=== PATIENT | female | born 1955 | race Caucasian/White ===

== ENCOUNTER 2016-08-17 01:19 | Emergency (ER) | payer OTHER ==
[2016-08-17] MEDS ORDERED: IOPAMIDOL 370 (76%) 100 ML VIAL IV ONE (01:20)
[2016-08-17] MEDS ORDERED: MORPHINE SULFATE 2 MG/ML SYRINGE ONE ×2 (01:50→02:43)
[2016-08-17] MEDS ORDERED: LACTATED RINGERS 1,000 ML ONE (01:50)
[2016-08-17] MEDS ORDERED: MORPHINE SULFATE 4 MG/ML SYRINGE ONE ×2 (01:50→02:43)
[2016-08-17] MEDS ORDERED: PROCHLORPERAZINE 5 MG/ML 2 ML VIAL ONE (01:50)
[2016-08-17 02:15] LABS: ABSOLUTE NEUTROPHIL COUNT 9.4 K/mm3 (1.8-7.7); BASO % 0.4 % (0.2-1.0); HEMOGLOBIN 12.3 gm/l (12.0-16.0); IMM NEUT% 0.4 % (0-1); LYMPH # 1.3 (1.0-4.8); LYMPH % 11.4 % (15-45); MEAN CELL VOLUME 93.5 fl (81.0-99.0); MEAN CORPUSCULAR HEMOGLOBIN 31.9 pg (27.0-31.0); MEAN CORPUSCULAR HGB CONC 34.2 g/dl (33.0-37.0); MEAN PLATELET VOLUME 10.2 fl (7.4-10.4); MONO # 0.3 (0.0-0.8); MONO % 2.5 % (4-12); NEUT % 85.3 % (43-75); PLATELET COUNT 269 K/mm3 (130-400); RED CELL DISTRIBUTION WIDTH 12.2 % (11.5-14.5)
[2016-08-17 02:32] LABS: ALB/GLOB RATIO 1.5 (>1.0); CALCIUM 9.1 mg/dL (8.6-10.3)
[2016-08-17 02:47] LABS: SPECIFIC GRAVITY 1.015 (1.001-1.030); URINE BILIRUBIN NEGATIVE (NEGATIVE); URINE BLOOD TRACE (NEGATIVE); URINE GLUCOSE (UA) NEGATIVE (NEGATIVE); URINE LEUKOCYTE ESTERASE 2+ (NEGATIVE); URINE NITRITE NEGATIVE (NEGATIVE); URINE PROTEIN NEGATIVE (NEGATIVE); URINE UROBILINOGEN NORMAL (0-1 mg/dl)
[2016-08-17 02:48] LABS: URINE COLOR DARK YELLOW
[2016-08-17 02:49] LABS: URINE APPEARANCE HAZY
[2016-08-17 03:02] LABS: URINE BACTERIA RARE; URINE WBC 15-20 /hpf
[2016-08-17 04:00] LABS: CREATININE,RANDOM URINE 53 mg/dL
--- NOTE | 2016-08-17 07:52 | CT ---
Name: MRYTLE RASCON Exam: CT abdomen pelvis with contrast Comparison: None History: Diffuse abdominal pain Procedure: Helical CT using multidetector technique was applied to the abdomen and pelvis during intravenous administration of 100 cc Isovue-370. No oral contrast was given per ordering physician. An automated dose reduction technique was used to minimize patient radiation dose. Findings: CT abdomen (contrast enhanced): Lung bases are clear. Heart is nonenlarged. No pericardial effusion. Fatty changes of liver are suspected. The posterior segment of the right hepatic lobe, there is a 1 cm poorly marginated hypodensity which is too small to characterize on CT. Follow-up ultrasound is recommended. Gallbladder, spleen, adrenal glands, kidneys, aorta, IVC and portal vein are within normal limits. Pancreas somewhat truncated. There is a moderate size hiatal hernia distal stomach wall is thickened colon is redundant and there is diffuse increased stool within the colon. There is no free air, free fluid or suspicious adenopathy. There is very mild osteophytosis of the visualized spine with prominent degenerative facet disease at L5-S1. CT pelvis (contrast enhanced): Bladder is normal. Normal size uterus is to the right. There is mild stool within the rectosigmoid colon. Small bowel loops within the pelvis measure up to 3 cm in diameter and there is fecalization of the small bowel contents. Ovaries are not clearly identified air there is no suspicious adnexal mass. There is trace free fluid. There is no free air, abscess or adenopathy. Impression: 1. Obstipation. Patient's colon is redundant and there is increased stool 2. There are multiple loops of ileum which are mildly prominent and there is fecalization of small bowel content within the pelvis. Again, severe obstipation could have this appearance. Transition zone is not identified on this exam. 3. Nonvisualization of the appendix or ovaries. There are no pericecal inflammatory changes and no adnexal mass. 4. Trace free fluid. There is no free air or abscess 5. 1 cm poorly marginated hypodensity within the posterior segment right hepatic lobe. If this is previously unknown, follow-up ultrasound is recommended. 6. Nonvisualization of the body and tail of the pancreas. This truncation may be congenital. 7. Moderate size hiatal hernia Note: Findings were transmitted to the emergency Department from [facility] at 2:45 AM
[2016-08-18 13:49] LABS: CORTISOL 52.5 ug/dL (3.1-22.4)
== END 2016-08-17 06:01 | disposition home or self-care (01) ==
LOC: ED 01:19 → EEVIPCON 01:19 → ED 06:01
DX: R10.9 Unspecified abdominal pain (principal); E87.1 Hypo-osmolality and hyponatremia; E03.9 Hypothyroidism, unspecified; Z79.899 Other long term (current) drug therapy
CPT/HCPCS: 83605 ×2; 83690; 85025; 82533; 82570; 87086; 80053; 83930; 83935; 84300; 84443; 84484; 81001; 74177; 96375; 96376; 99284 ×2; 96374; J0780; J2270 ×4; J7120; Q9967

== ENCOUNTER 2016-08-17 20:01 | Inpatient (IN) | payer OTHER ==
[2016-08-17] MEDS ORDERED: IOPAMIDOL 370 (76%) 100 ML VIAL IV ONE (20:02)
[2016-08-17] MEDS ORDERED: ONDANSETRON 4 MG/2ML 2 ML VIAL ONE (20:53)
[2016-08-17] MEDS ORDERED: SODIUM CHLORIDE 0.9% 1,000 ML ONE (20:53)
[2016-08-17 21:25] LABS: ABSOLUTE NEUTROPHIL COUNT 15.8 K/mm3 (1.8-7.7); BASO % 0.1 % (0.2-1.0); HEMATOCRIT 37.4 % (37.0-47.0); HEMOGLOBIN 12.8 gm/l (12.0-16.0); IMM NEUT # 0.1 K/mm3 (0-0.2); IMM NEUT% 0.5 % (0-1); LYMPH # 0.9 (1.0-4.8); LYMPH % 5.1 % (15-45); MEAN CELL VOLUME 92.8 fl (81.0-99.0); MEAN CORPUSCULAR HEMOGLOBIN 31.8 pg (27.0-31.0); MEAN CORPUSCULAR HGB CONC 34.2 g/dl (33.0-37.0); MEAN PLATELET VOLUME 10.8 fl (7.4-10.4); MONO # 0.3 (0.0-0.8); MONO % 1.7 % (4-12); NEUT % 92.6 % (43-75); PLATELET COUNT 259 K/mm3 (130-400); RED CELL DISTRIBUTION WIDTH 12.5 % (11.5-14.5)
[2016-08-17 21:27] LABS: PH,URINE 6.5 (5.0-8.0); URINE BILIRUBIN NEGATIVE (NEGATIVE); URINE BLOOD 2+ (NEGATIVE); URINE GLUCOSE (UA) NEGATIVE (NEGATIVE); URINE LEUKOCYTE ESTERASE NEGATIVE (NEGATIVE); URINE NITRITE NEGATIVE (NEGATIVE); URINE PROTEIN TRACE (NEGATIVE); URINE UROBILINOGEN NORMAL (0-1 mg/dl)
[2016-08-17 21:36] LABS: ALB/GLOB RATIO 1.5 (>1.0); ALBUMIN 4.1 gm/dL (3.5-5.7)
[2016-08-17 21:40] LABS: URINE APPEARANCE CLEAR; URINE COLOR YELLOW
[2016-08-17] MEDS ORDERED: SODIUM CHLORIDE 0.9% 2,000 ML ONE (22:02)
[2016-08-17] MEDS ORDERED: HYDROMORPHONE HCL 1 MG/ML SYRINGE ONE (22:04)
[2016-08-17 22:18] LABS: BAND 10 % (0-10); BASOPHIL 0 % (0-1); EOSINOPHIL 0 % (1-3); LYMPHOCYTE 5 % (15-45); MONOCYTE 0 % (4-12); NEUTROPHILS 85 % (43-75); PLATELET ESTIMATE NORMAL (NORMAL); TOTAL CELLS COUNTED 100
[2016-08-17] MEDS ORDERED: PIPERACILLIN-TAZO PREMIX BAG 50 ML IV ONE (22:29)
[2016-08-17 22:42] LABS: URINE EPITHELIAL CELLS 0-2 /hpf
[2016-08-17 22:43] LABS: URINE BACTERIA 0
--- NOTE | 2016-08-17 22:55 | CT ---
Name: MYRTLE RASCON Exam: CT chest, abdomen and pelvis with contrast Comparison: CT abdomen dated 08/17/2016 History: Left upper quadrant pain. Nausea and vomiting. Procedure: Helical CT using multidetector technique was applied to the chest, abdomen and pelvis during intravenous administration of 100 cc Isovue-370. No oral contrast was given per ordering physician. An automated dose reduction technique was used to minimize patient radiation dose. Findings: CT chest (contrast-enhanced): Heart is not enlarged. There is no pericardial effusion. Aorta is normal caliber and there is a normal 3 great vessel arrangement. Limited views of the thyroid gland are within normal limits. Injection was made via the right. There is no suspicious axillary, mediastinal or hilar adenopathy. Large airways are clear. Vague mild patchy infiltrate is noted within the left upper lobe. There is a 9 mm well-circumscribed triangular-shaped structure associated with the minor fissure on the right which is thought to represent a lymph node. There is no pleural effusion or pneumothorax. Moderate size hiatal hernia is again identified. There is mild multilevel degenerative osteophytosis of the thoracic spine CT abdomen (contrast enhanced): The liver is normal size. Within the posterior segment of the right hepatic lobe, there is a 1 cm poorly marginated hypodensity which is too small to characterize on CT. Follow-up ultrasound is recommended. There is been vicarious excretion of contrast into the gallbladder as it is nearly isodense to surrounding liver. There is no gallbladder distention. There is no suspicious biliary dilation. The head of the pancreas is normal. The body and tail of the pancreas are absent truncation may be congenital. The spleen is not enlarged. Adrenal glands are normal. Kidneys, aorta, IVC and portal vein are normal. The distal wall of the stomach is thickened and this may be due to gastritis or underdistention and this is similar to the prior. Small bowel is nondilated. There is air and stool throughout the redundant colon. Stool burden appears to have diminished in the interim. There is no free air, adenopathy or abscess. There is new mild free fluid. Mild degenerative disease of the spine is present. CT pelvis (contrast enhanced): The bladder is partially filled. Normal size uterus is to the right. Ovaries are not identified. The distal small bowel loops that had fecalization of its material are less prominent on the current exam. There is no small bowel dilation. There is air and stool within the sigmoid colon and there is no obstruction. There is mild free fluid within the pelvis which is increased in volume from today's earlier exam. The appendix is not identified as a separate anatomic structure. There is no free air or abscess. Impression: 1. Very mild patchy infiltrate left upper lobe 2. Mild ascites within the abdomen new from the prior exam. There is mild ascites in the pelvis which is increased in volume from the prior exam. There is no current free air or abscess. 3. Stool and air throughout the redundant colon. Stool volume has diminished since the prior exam 4. Nonvisualization of the appendix and ovaries 5. Thickening of the distal stomach similar to the prior exam. This could be due to underdistention however gastritis is not excluded 6. 1 cm poorly marginated hypodensity within the right hepatic lobe similar to the prior. This is too small to characterize on CT. Follow-up ultrasound is recommended. 7. Moderate size hiatal hernia Note: The above report was uploaded to [facility]'s electronic medical records system at 2248 hours.
[2016-08-17] MEDS ORDERED: METRONIDAZOLE 500 MG/NS 100 ML 100 ML IV ONE (23:18)
[2016-08-17] MEDS ORDERED: ONDANSETRON 4 MG/2ML 2 ML VIAL IV PRN (23:42)
[2016-08-17] MEDS ORDERED: MENTHOL/CETYLPYRD 1 EACH LOZENGE PO PRN (23:42)
[2016-08-17] MEDS ORDERED: HYDROMORPHONE HCL 1 MG/ML SYRINGE IV PRN (23:42)
[2016-08-17] MEDS ORDERED: BLISTEX LIPSTICK 1 EACH TP PRN (23:42)
[2016-08-17] MEDS ORDERED: ACETAMINOPHEN 325 MG SUP PR PRN (23:42)
[2016-08-17] MEDS ORDERED: FAMOTIDINE 10 MG/ML 2ML VIAL IV SCH (23:45)
[2016-08-17] MEDS ORDERED: D5 1/2NS with 20 mEq KCL 1,000 ML IV SCH (23:45)
[2016-08-18] MEDS ORDERED: FENTANYL 5 ML ONE (00:42)
[2016-08-18] MEDS ORDERED: SUCCINYLCHOLINE CHL 20 MG/ML DOSE ONE (00:42)
[2016-08-18] MEDS ORDERED: DEXAMETHASONE SOD PHOS 4 MG/1 ML VIAL ONE (00:42)
[2016-08-18] MEDS ORDERED: MIDAZOLAM HCL 1 MG/ML 2ML VIAL ONE (00:42)
[2016-08-18] MEDS ORDERED: PROPOFOL 20 ML IV ONE (00:42)
[2016-08-18] MEDS ORDERED: LIDOCAINE 2% (MULTI DOSE) 10 ML VIAL ONE (00:42)
[2016-08-18] MEDS ORDERED: LACTATED RINGERS 1,000 ML ONE (01:21)
[2016-08-18] MEDS ORDERED: EPHEDRINE SULFATE UD SYR 25 MG 25 MG/5 ML SYRINGE IV ONE (01:41)
[2016-08-18] MEDS ORDERED: NEOSTIGMINE METHYLSULFATE 1 MG/ML DOSE ONE (02:16)
[2016-08-18] MEDS ORDERED: GLYCOPYRROLATE 0.2 MG/ML 1ML VIAL ONE (02:16)
[2016-08-18] MEDS ORDERED: KETOROLAC TROMETHAMINE 30 MG/ML 1 ML VIAL IV PRN (02:27)
[2016-08-18] MEDS ORDERED: BISACODYL 10 MG SUP PR PRN (02:27)
[2016-08-18] MEDS ORDERED: ACETAMINOPHEN 325 MG TABLET PO PRN (02:27)
[2016-08-18] MEDS ORDERED: MENTHOL/CETYLPYRD 1 EACH LOZENGE PO PRN (02:27)
[2016-08-18] MEDS ORDERED: BLISTEX LIPSTICK 1 EACH TP PRN (02:27)
[2016-08-18] MEDS ORDERED: ONDANSETRON 4 MG/2ML 2 ML VIAL IV PRN (02:27)
[2016-08-18] MEDS ORDERED: HYDROMORPHONE HCL 1 MG/ML SYRINGE IV PRN ×2 (02:27→02:48)
[2016-08-18] MEDS ORDERED: OXYCODONE HCL 5 MG TABLET PO PRN (02:27)
[2016-08-18] MEDS ORDERED: NALOXONE HCL 0.4 MG/ML VIAL ONE (02:29)
[2016-08-18] MEDS ORDERED: NALOXONE HCL 0.4 MG/ML VIAL IV PRN (02:48)
[2016-08-18] MEDS ORDERED: PROMETHAZINE HCL 25 MG/ML VIAL IM PRN (02:48)
[2016-08-18] MEDS ORDERED: MEPERIDINE 25 MG/ML SYRINGE IV PRN (02:48)
[2016-08-18] MEDS ORDERED: ATROPINE SULFATE 0.4 MG/1 ML VIAL IV PRN (02:48)
[2016-08-18] MEDS ORDERED: FENTANYL 100 MCG/2 ML VIAL IV PRN (02:48)
[2016-08-18] MEDS ORDERED: LACTATED RINGERS 1,000 ML IV SCH (03:00)
[2016-08-18] MEDS ORDERED: HYDROMORPHONE HCL 0.5 MG/0.5 ML SYRINGE IV PRN (04:20)
[2016-08-18] MEDS ORDERED: PUMP TUBING ONE (04:25)
[2016-08-18] MEDS: D5 1/2NS with 20 mEq KCL 1,000 ML IV SCH ×2 (04:28→12:38)
[2016-08-18 05:33] VITALS: BMI 23.0
[2016-08-18] MEDS ORDERED: CEFAZOLIN SODIUM 1 GRAM PREMIX 50 ML IV ONE (06:24)
--- NOTE | 2016-08-18 06:54 | HP ---
MYRTLE ELLIS [id number] DATE OF ADMISSION: August 17, 2016 HISTORY OF PRESENT ILLNESS: I had the pleasure of seeing Ms. Webb in the [facility] Emergency Department. She has a history of abdominal pain over the last 36 to 48 hours. She states that she really has not had this pain before. She may have had some episodic abdominal pain in the remote past related to exercise but nothing similar to what is occurring today. Approximately 24 to 30 hours ago, Ms. Webb was at the movie theater. She had acute onset of abdominal pain which then became colicky and persisted. She left the theater, returned home, had her pain subsided slightly only to increase later Thursday evening. She presented to the emergency department at [facility]. At that time she was evaluated. She had an elevation in her white count as well as an elevated lactate. She was resuscitated and underwent a CAT scan and was felt to have nonspecific findings and was discharged home as her pain resolved with pain medication and IV fluid resuscitation, and again her lactate did improve. Ms. Webb was doing well at home after the initial admission to [facility] and the treatment she received but she developed progressively increasing abdominal pain and returned to the hospital today with worsening abdominal pain. She states it is most severe in the right upper quadrant although it does extend down into the right lower quadrant. On admission to [facility], her white count is 17.1 with a left shift with elevation of her neutrophils. She has a low sodium at 128 and a glucose at 148. She underwent a CAT scan which reveals free fluid in the pelvis as well as a number of areas of small amounts of free air in the right upper quadrant in the subhepatic region. She also has a thickened distal portion of the stomach and duodenum. She has some free fluid in the right upper quadrant again which extends down to the region of the right lower quadrant. She is tender to palpation both in the right upper and right lower abdominal quadrants. She has local peritonitis and guarding, voluntary guarding in these regions. She has no diffuse abdominal tenderness. PAST MEDICAL HISTORY: 1. She is well. 2. She has migraines for which she takes sumatriptan. 3. Hypothyroidism. PAST SURGICAL HISTORY: 1. Previous uterine ablation. 2. Henrietta teeth removal. MEDICATIONS: 1. Sumatriptan. 2. Infrequent nonsteroidal antiinflammatory medication. 3. Levothyroxine for hypothyroidism. ALLERGIES TO MEDICATIONS: NO APPARENT ALLERGIES. ASSESSMENT: I had a long discussion today with Ms. Webb regarding the findings related to her abdominal complaints. Her abdominal pain started 24 hours ago and is only at this point now come to the point that is unbearable. She has elevation of her white count. She has progression of her pain from her right upper quadrant to her right lower quadrant. In addition, she has a CAT scan that demonstrates free fluid as well as small amounts of free air and thickening of the duodenum. I believe that this represents Ms. Webb has had a perforated duodenal ulcer. I reviewed the plan for a laparoscopy to evaluate small bowel and appendix and also the duodenum. If a perforated duodenal ulcer is identified, we will plan for a midline incision and repair of the duodenal ulcer with a standard Dashawn patch. I also discussed the risk of potential conversion to an open procedure and potential appendectomy or bowel resection and possible stoma. I reviewed the risks of general surgery which include but were not limited to deep venous thrombosis, myocardial infarction, pulmonary embolism, wound infection, urinary tract infection, kidney failure, respiratory failure, reaction to medication, reaction to anesthetic, and hernia through the incision. I also discussed specific risks of duodenal repair which would be ongoing leak requiring additional surgery. PLAN: We will plan for a laparoscopy with possible repair of duodenal ulcer, possible small bowel resection and possible appendectomy depending on her findings. I am confident that Ms. Webb will have a perforated duodenal ulcer. Plan for operative intervention at the operating room's earliest convenience.
--- NOTE | 2016-08-18 07:28 | OP ---
MYRTLE ELLIS [id number] DATE OF OPERATION: August 18, 2016 SURGEON: Javed Martinez M.D. PREOPERATIVE DIAGNOSIS: Perforated duodenal ulcer. POST OPERATIVE DIAGNOSIS: Internal hernia of distal small bowel with ischemia related to closed loop obstruction. OPERATION PERFORMED: 1. Laparoscopy. 2. Release of adhesive band from small bowel mesentery to right lower quadrant. 3. Reduction of internal hernia and release of ischemic closed loop section of bowel. 4. Visualization of bowel demonstrating normal vascularity with absence of ischemia. COMPLICATIONS: None. ESTIMATED BLOOD LOSS: Minimal. CLINICAL VIGNETTE: Ms. Webb is a 61-year-old female who presented to the emergency department at [facility] with symptoms of abdominal pain and evidence of free fluid inside the abdominal cavity. She had an initial lactate that was elevated, but on resuscitation it improved. She was initially discharged home but then returned with increasing pain and returned to her elevated lactate level. A CAT scan was undertaken which revealed free fluid in the right upper quadrant and in the right lower quadrant. I felt on exam her pain was in the midline extending to the right lower quadrant. On the CAT scan, I felt that there was edema in the region of the duodenum suggesting a perforated duodenal ulcer. I discussed this with the family and Ms. Webb and planned to proceed with a laparoscopy for evaluation of the right lower quadrant and possible open conversion for repair of duodenal ulcer, possible bowel resection and stoma creation were also added to the consent. The risks and benefits of surgery were explained to Ms. Webb. She agreed to proceed with the surgery and informed consent was obtained. OPERATIVE PROCEDURE: Ms. Webb was brought to the operating room and prepped and draped in the usual fashion in the supine position after undergoing general anesthetic and subcutaneous Heparin injection and preoperative antibiotics. A 5 mm direct obturator view trocar was used to enter the abdominal cavity in the left lower quadrant. Once inside the abdominal cavity, a pneumoperitoneum was created. As soon as the trocar was placed inside the abdominal cavity, identified serous clear peritoneal fluid demonstrating a mild ascites. Two additional ports were placed, one in the upper midline and one in the lower midline. Both under direct visualization. Once inside the abdominal cavity, I looked at the right colon which appeared to be normal. In visualization of the appendix, which was also normal, I identified a loop of small bowel, approximately 1.5 feet which had coiled and was trapped by an adhesive band extending from the base of the small bowel mesentery down to the right lower quadrant. This adhesive band created a closed loop obstruction with ischemic changes within the small bowel. Small bowel also demonstrated distention with fecalization of stool within its contents suggesting that this was an acute on chronic problem. I was able to elevate the band away from the closed loop hernia and was able to transect the band laparoscopically. This released the small bowel. Small bowel almost immediately appeared to pink up and had resolution of its ischemia. At this point, I then investigated the small bowel starting at the terminal ileum at its insertion at the IC valve and followed all the way back to the ligament of Treitz. The remaining portion of the small bowel with the exception of this closed loop obstruction was of normal caliber without evident distention. The closed loop obstruction after being released appeared to normalize quite quickly. The bowel pinked up and it had no evidence of ischemia once the adhesive band was released. At this point, I then to insure there was no additional pathology, looked and ran the right colon, the transverse colon, descending colon, and sigmoid. There was no evidence of issues. The sigmoid colon was quite redundant which does place her at risk for sigmoid volvulus but this was not the case at this point. I then also investigated the region of the right upper quadrant and the duodenum. I could easily see the duodenal cap and was able to visualize this down to the region where it attached in the retroperitoneum. There was no evidence of perforation in the duodenal cap. I also visualized the pylorus and the entire stomach on the anterior side. There was again no evidence of thickening and no evidence of perforation or abnormalities. I also was able to visualize inside the lesser sac. The pancreas appeared to be normal and healthy without evidence of abnormalities in this region. At this point we then completed our evaluation of the peritoneal cavity and went back and reevaluated the previous area of small bowel that had the closed loop obstruction. At this point, the bowel had again returned to completely normal coloration and had active peristalsis and appeared to decrease in size in the short time that it took for the remaining portion of the laparoscopy. Once we completed the release of the adhesive band, I then irrigated the right pericolic gutter and pelvis. Again, there was no evidence of contamination. The previous ascites upon entering the abdominal cavity was clear ascitic fluid. I did copiously irrigate this area and continued until the fluid was entirely clear. Once this was completed, we released the pneumoperitoneum, and the trocars were removed under direct visualization. Skin was closed with #4-0 Monocryl. Ms. Webb was stable throughout the procedure. There were no complications identified intraoperatively and she was transported to recovery in stable condition.
[2016-08-18 08:56] LABS: HEMATOCRIT 32.1 % (37.0-47.0); HEMOGLOBIN 10.9 gm/l (12.0-16.0); MEAN CELL VOLUME 94.7 fl (81.0-99.0); MEAN CORPUSCULAR HEMOGLOBIN 32.2 pg (27.0-31.0); RED CELL DISTRIBUTION WIDTH 12.8 % (11.5-14.5)
[2016-08-18] MEDS ORDERED: SODIUM CHLORIDE 0.65% NASAL SPRAY 45 ML BOT NS ONE (08:56)
[2016-08-18] MEDS ORDERED: SODIUM CHLORIDE 0.65% NASAL SPRAY 45 ML BOT NS PRN (08:58)
[2016-08-18] MEDS ORDERED: SENNOSIDES 8.6 MG TABLET PO SCH (09:00)
[2016-08-18] MEDS ORDERED: FAMOTIDINE 10 MG/ML 2ML VIAL IV SCH (09:00)
[2016-08-18] MEDS: CEFAZOLIN SODIUM 1 GRAM PREMIX 1 G in Premix (D5W) 50 ml 1 EACH IV SCH ×2 (09:00→14:56)
[2016-08-18] MEDS ORDERED: DOCUSATE SODIUM 100 MG CAPSULE PO SCH (09:00)
[2016-08-18 09:36] LABS: ALB/GLOB RATIO 1.6 (>1.0); ALBUMIN 3.2 gm/dL (3.5-5.7); CALCIUM 7.8 mg/dL (8.6-10.3)
[2016-08-18 09:38] VITALS: BP 110/70
[2016-08-18] MEDS ORDERED: Heparin Sodium 5000 unit/0.5ml syringe SUB-Q SCH (21:46)
[2016-08-19] MEDS ORDERED: Heparin Sodium 5000 unit/0.5ml syringe SUB-Q SCH (01:00)
--- NOTE | 2016-08-19 12:48 | DS ---
Duyen Chavez DATE OF ADMISSION: 08/18/2016 DATE OF DISCHARGE: 08/19/2016 HOSPITAL COURSE: In summary, Mrs. Denise Chavez is a very pleasant 61-year-old female who was admitted with symptoms of abdominal pain which had been present for a number of months on and off december be dating back as far as one year. She returned to the hospital today with worsening of her abdominal pain. She was evaluated and a CAT scan was performed. I initially reviewed the CAT scan and felt that her symptoms were most consistent with a perforated duodenal ulcer. She had free fluid in the abdominal cavity with this intermittent abdominal pain. The risks and benefits of surgery were explained to Mrs. Walker. She agreed to proceed with surgery. Informed consent was obtained. I then proceeded to perform an operation for Mrs. Walker on August 18. At the time of operating internal hernia with distal small bowel was identified. There was ischemic changes related to the obstruction. There was a release of an adhesive band from small bowel mesentery to right lower quadrant. Reduction of the internal hernia and normal vascularity of the bowel once the obstruction was removed. At that time, Mrs. Walker had an uneventful course in hospital and was discharged home in a timely fashion. JOB: [id number]
== END 2016-08-18 15:45 | disposition home or self-care (01) | DRG 326 ==
LOC: ED 20:01 → SDC 23:32 → MS 08-18 02:28 → SDC 08-18 13:59
PROVIDERS: ADMIT Surgery; ATTEND Surgery
PROC: 0DNV4ZZ Release Mesentery, Percutaneous Endoscopic Approach (ICD-10-PCS; principal; 2016-08-18)
PROC: 0BQS4ZZ (ICD-10-PCS; 2016-08-18)
PROC: 0DNM4ZZ Release Descending Colon, Percutaneous Endoscopic Approach (ICD-10-PCS; 2016-08-18)
DX: K44.9 Diaphragmatic hernia without obstruction or gangrene (principal); K26.5 Chronic or unspecified duodenal ulcer with perforation; R18.8 Other ascites; R91.8 Other nonspecific abnormal finding of lung field; G43.909 Migraine, unspecified, not intractable, without status migrainosus; E03.9 Hypothyroidism, unspecified

== ENCOUNTER 2016-11-07 09:24 | Emergency (ER) | payer OTHER ==
[2016-11-07] MEDS ORDERED: IOPAMIDOL 370 (76%) 100 ML VIAL IV ONE (09:25)
[2016-11-07] MEDS ORDERED: MORPHINE SULFATE 2 MG/ML SYRINGE ONE (09:57)
[2016-11-07] MEDS ORDERED: ONDANSETRON 4 MG/2ML 2 ML VIAL ONE (10:04)
[2016-11-07 10:09] LABS: ABSOLUTE NEUTROPHIL COUNT 6.8 K/mm3 (1.8-7.7); BASO % 0.5 % (0.2-1.0); EOS % 0.2 % (0.9-2.9); HEMATOCRIT 36.3 % (37.0-47.0); HEMOGLOBIN 11.9 gm/l (12.0-16.0); IMM NEUT% 0.2 % (0-1); LYMPH # 1.4 (1.0-4.8); LYMPH % 15.5 % (15-45); MEAN CELL VOLUME 97.1 fl (81.0-99.0); MEAN CORPUSCULAR HEMOGLOBIN 31.8 pg (27.0-31.0); MEAN CORPUSCULAR HGB CONC 32.8 g/dl (33.0-37.0); MEAN PLATELET VOLUME 10.6 fl (7.4-10.4); MONO # 0.5 (0.0-0.8); MONO % 5.3 % (4-12); NEUT % 78.3 % (43-75); PLATELET COUNT 226 K/mm3 (130-400); RED CELL DISTRIBUTION WIDTH 12.3 % (11.5-14.5)
[2016-11-07 10:11] LABS: SPECIFIC GRAVITY 1.015 (1.001-1.030); URINE BILIRUBIN NEGATIVE (NEGATIVE); URINE BLOOD NEGATIVE (NEGATIVE); URINE GLUCOSE (UA) NEGATIVE (NEGATIVE); URINE LEUKOCYTE ESTERASE NEGATIVE (NEGATIVE); URINE NITRITE NEGATIVE (NEGATIVE); URINE PROTEIN NEGATIVE (NEGATIVE); URINE UROBILINOGEN NORMAL (0-1 mg/dl)
[2016-11-07 10:12] LABS: URINE APPEARANCE CLEAR; URINE COLOR YELLOW
[2016-11-07 10:43] LABS: ALB/GLOB RATIO 1.5 (>1.0); ALBUMIN 3.9 gm/dL (3.5-5.7); CALCIUM 8.9 mg/dL (8.6-10.3)
--- NOTE | 2016-11-07 12:17 | CT ---
Exams: CT abdomen without and with contrast, CT pelvis with contrast COMPARISON: 08/17/2016 and ultrasound 11/06/2016 INDICATION: Severe upper abdominal pain. History of surgery in 08/22/2016 with lysis of adhesions. Otherwise no other abdominal surgeries. Liver lesion. TECHNIQUE: CT examination of the abdomen was obtained without contrast and following the administration 100 mL Isovue-300 venous contrast using a four-phase liver mass protocol. CT examination of the pelvis was obtained in the venous phase of contrast only. FINDINGS: There is a significant amount of stool throughout the colon, as well as stool within the distal ileum reflecting an incompetent ileocecal valve. Stool burden has increased since the August exam. Sigmoid colon is noted to be redundant, and there is a focal loop of gas filled sigmoid colon within the epigastrium and left upper quadrant. There is no pneumatosis. Other than some fecalization of small bowel contents within the pelvis just above the urinary bladder, small bowel is otherwise unremarkable as well. There is no bowel obstruction, free air or free intraperitoneal fluid. No inflammatory changes are appreciated within the abdomen or pelvis. Mesenteric vessels enhance appropriately. Uterus is present. There is no adnexal mass. There is no pelvic lymphadenopathy or fluid collection. There is a 10 mm hypodense lesion within the right lobe of liver which is only well seen on the portal venous phase of imaging, reference axial image 17 of 156. This correlates with the lesion on yesterday's ultrasound. This is unchanged since 08/17/2026 CT. No additional liver lesions are identified. The gallbladder is present unremarkable. There is no biliary ductal dilation. Pancreas is within normal limits. Spleen is normal in size. Kidneys are unremarkable. There is no adrenal mass. Moderate hiatal hernia is again appreciated. Tiny right-sided pleural effusion is appreciated. There is bibasilar atelectasis, right greater than left. There is multilevel facet arthropathy, most pronounced at the lumbosacral junction, right greater than left. No worrisome lytic or blastic osseous lesion is identified. IMPRESSION: 1. There is a significant amount of stool throughout the colon, with fecalization of distal small bowel contents presumably related to incompetent ileocecal valve and/or stasis. There is no evidence of bowel obstruction. There is a focally prominent loop of gas-filled redundant sigmoid colon within the epigastrium and left upper quadrant. Query if this could be related to patient's symptoms. 2. 10 mm liver lesion as above. This remains of uncertain etiology as imaging characteristics are not definitive of an hemangioma but nevertheless benign etiology is favored given lesion size, three-month stability and lack of underlying liver disease or primary malignancy. 6 month follow-up ultrasound is recommended. 3. Bibasilar atelectasis and tiny right-sided pleural effusion. Given normal white count and lack of cough, this is likely related to patient's inability to take a deep breath related to her pain. 4. Stable moderate hiatal hernia. Findings were discussed with Dr. Madrigal at 1155 hours 11/07/2016.
== END 2016-11-07 12:37 | disposition home or self-care (01) ==
LOC: ED 09:24
DX: R10.11 Right upper quadrant pain (principal); R11.0 Nausea